=== PATIENT | male | born 1955 | race Caucasian/White ===

== ENCOUNTER → 2017-06-23 | Outpatient (CLI) | payer OTHER ==
[~2017-06-23] MED LIST: NO MEDICATIONS
--- NOTE | ~2017-06-23 | MR191 ---
[facility] A Service of [facility] RADIOLOGY TEXT RESULTS PATIENT: CAROLANN BRAGG [facility] 59 UNIT #: [id number] AGE: [address]: TRUE CERON MD SEX: M ORDER DR: [id number] [facility] [address]. [place], [place] [address] [id number] O MR#: [id number] #: [id number] NAME: CAROLANN BRAGG : 1955 SEX: M STUDY DATE/TIME: 06/23/2017 12:33 UNIT: [facility] ROOM: STUDY DESCRIPTION: MR Shoulder Arthrogram Rt Attending Physician: True Ceron M.D. Ordering Physician: Physician Non-Staff Primary Care Physician: True Ceron M.D. MRI CENTER REPORT This report is preliminary unless electronic signature is present. EXAM MR arthrogram right shoulder HISTORY 61-year-old male apparently fell fracturing both wrists in March. Now unable to move right shoulder in any direction. COMPARISON Conventional arthrogram, 06/23/2017 FINDINGS Routine MR arthrograms was performed of the right shoulder following the intraarticular injection of dilute gadolinium. As reported by the technologist the patient was extremely claustrophobic requiring to be repositioned multiple times during the examination. Examination demonstrates some mild AC joint arthropathy with a small amount of periarticular edema suggesting some active inflammation. No evidence of AC joint separation. No bone contusion or occult fracture. Contrast distends the glenohumeral joint with extravasation through the rotator interval into the anterior shoulder tissues as well as some extravasation along the surgical neck of the humerus near the axillary recess. This represents a nonspecific finding and can be related to adhesive capsulitis or over distention of the joint. As reported by the radiologist performing the arthrogram findings were suggestive of adhesive capsulitis. No evidence of a partial or full-thickness rotator cuff tear. No muscle atrophy or edema. Visualized labrum appears normal. Articular cartilage long tendon of the biceps appears normal. The extravasation of contrast in the region of the axillary recess also represent a nonspecific finding but can be reported with injuries to the inferior glenohumeral ligament complex. This may be at least partially supported by the patient's reported mechanism of injury. The major anterior glenohumeral STS. [facility] A Service of [facility] RADIOLOGY TEXT RESULTS PATIENT: CAROLANN BRAGG LOCATION: [facility] : 59 UNIT #: [id number] AGE: [address]: TRUE CERON MD SEX: M ORDER DR: ligaments appear intact. IMPRESSION 1. No evidence of rotator cuff tear. 2. No evidence of labral tear. 3. Extravasation of contrast from the shoulder joint, both anteriorly and in the region of the axillary recess. These both represent nonspecific findings, however the inferior extravasation along the axillary recess has been associated with injuries to the inferior glenohumeral ligament complex, though discrete injury is not identified. 4. AC joint arthropathy with some periarticular edema suggesting some active inflammation. Dictated by... Brandee Costa M.D. THIS IS AN ELECTRONICALLY VERIFIED REPORT Brandee Costa M.D. at 06/26/2017 4:50 PM JOSE/chepe TD: 06/24/2017 04:08 JOB #: [id number] MRI CENTER REPORT Page 1 of 1 COPY
--- NOTE | ~2017-06-23 | XA35 ---
[facility] A Service of [facility] RADIOLOGY TEXT RESULTS PATIENT: CAROLANN BRAGG LOCATION: [facility] : 59 UNIT #: [id number] AGE: [address]: TRUE CERON MD SEX: M ORDER DR: [id number] [address] [id number] [facility]. [place], [place] [address] [id number] O MR#: [id number] #: [id number] NAME: CAROLANN BRAGG : 1955 SEX: M STUDY DATE/TIME: 06/23/2017 11:41 UNIT: [facility] ROOM: STUDY DESCRIPTION: XA Arthrogram Shoulder Rt Attending Physician: True Ceron M.D. Ordering Physician: [facility] Primary Care Physician: True Ceron M.D. MEDICAL IMAGING REPORT This report is preliminary unless electronic signature is present EXAM Right shoulder arthrogram HISTORY Injection of the shoulder with a dilute gadolinium solution prior to MRI. Shoulder pain for the past several months. PROCEDURE The procedure explained the patient including risks, benefits and complications. Informed consent was obtained and a formal time-out procedure was utilized. Using sterile technique and following local anesthesia with 1% lidocaine, a 25-gauge needle was placed into the shoulder joint under fluoroscopic guidance. The joint was injected with approximately 13 mL of a mixture comprised of 20 mL of Isovue and 0.1 mL of gadolinium. 3 overhead spot films were obtained. Total fluoroscopy time 0.3 minutes. FINDINGS The joint capsule appears somewhat small and contracted. This could reflect adhesive capsulitis. There is no evidence of rotator cuff tear. MRI is pending. IMPRESSION Successful injection of the shoulder prior to MRI. Findings suggest adhesive capsulitis. Dictated by... Shaquille Jaimes M.D. THIS IS AN ELECTRONICALLY VERIFIED REPORT Shaquille Jaimes M.D. at 06/24/2017 11:30 AM [facility] A Service of [facility] RADIOLOGY TEXT RESULTS PATIENT: CAROLANN BRAGG LOCATION: [facility] : 59 UNIT #: [id number] AGE: [address]: TRUE CERON MD SEX: M ORDER DR: LAILA/reese TD: 06/23/2017 22:07 JOB #: [id number] MEDICAL IMAGING REPORT Page 1 of 1 COPY
== END | disposition home or self-care (01) ==
LOC: CMRI 11:18
DX: M25.511 Pain in right shoulder (principal); M19.011 Primary osteoarthritis, right shoulder
CPT/HCPCS: 73040; 73222; Q9967